=== PATIENT | female | born 1955 | race Caucasian/White ===

== ENCOUNTER 2023-09-04 12:37 | Emergency (ER) | payer MEDICARE, OTHER | END 2023-09-04 13:28 | disposition home or self-care (01) | LOC: BURERS 12:37 | DX: L03.314 Cellulitis of groin (principal); E11.9 Type 2 diabetes mellitus without complications; K21.9 Gastro-esophageal reflux disease without esophagitis; E78.5 Hyperlipidemia, unspecified; I10 Essential (primary) hypertension; F17.210 Nicotine dependence, cigarettes, uncomplicated; Z79.84 Long term (current) use of oral hypoglycemic drugs; Z79.899 Other long term (current) drug therapy; Z79.82 Long term (current) use of aspirin ==

== ENCOUNTER 2024-06-13 20:48 | Emergency (ER) | payer MEDICARE, OTHER ==
[2024-06-13] MEDS ORDERED: Bacitracin 1 PK ONE (21:51)
[2024-06-13] MEDS ORDERED: Boostrix 0.5 ML (Tdap) VIAL (>/=7 yrs of age) ONE (22:01)
== END 2024-06-13 22:26 | disposition home or self-care (01) ==
LOC: BURERS 20:48
DX: S91.012A Laceration without foreign body, left ankle, initial encounter (principal); I10 Essential (primary) hypertension; E11.9 Type 2 diabetes mellitus without complications; F17.210 Nicotine dependence, cigarettes, uncomplicated; W26.8XXA Contact with other sharp object(s), not elsewhere classified, initial encounter; Y92.512 Supermarket, store or market as the place of occurrence of the external cause
CPT/HCPCS: 90471; 90715